=== PATIENT | male | born 1980 | race Caucasian/White ===

== ENCOUNTER 2018-11-08 19:14 | Emergency (ER) | payer BC ==
[2018-11-08] MEDS ORDERED: NS 1,000 ML IV ONE (19:31)
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
[2018-11-08] MEDS ORDERED: IOPAMIDOL (ISOVUE-300) 100 ML BTL ONE (19:37)
[2018-11-08 20:38] VITALS: BP 118/85
== END 2018-11-08 20:33 | disposition home or self-care (01) ==
LOC: CED 19:14
DX: S20.221A Contusion of right back wall of thorax, initial encounter (principal); S20.411A Abrasion of right back wall of thorax, initial encounter; E86.9 Volume depletion, unspecified; V19.9XXA Pedal cyclist (driver) (passenger) injured in unspecified traffic accident, initial encounter; Y92.838 Other recreation area as the place of occurrence of the external cause; Y93.55 Activity, bike riding
CPT/HCPCS: 74177-PO; 82565-PO; 96360-ER; 99285-ER; Q9967